=== PATIENT | female | born 1965 | race Hispanic/Latino ===

== ENCOUNTER 2019-01-04 18:48 | Emergency (ER) | payer OTHER, MEDICARE ==
[~2019-01-04 18:48] MED LIST: ASPI-555 PO; ATOR10TA69 PO; LEVE500T19 PO; LISI-617 PO; TRAZ-187 PO
[2019-01-04] MEDS ORDERED: KETOROLAC TROMETHAMINE 30MG/ML ONE (20:01)
[2019-01-04 20:16] LABS: BASOPHILS % (AUTO) 0.4 % (0.0-5.0); EOSINOPHILS % (AUTO) 2.4 % (0.0-8.0); LYMPHOCYTES % (AUTO) 41.2 % (21.0-51.0); MEAN CORPUSCULAR HEMOGLOBIN 31.3 pg (27.0-33.0); MEAN CORPUSCULAR HGB CONC 34.5 g/dL (32.0-36.0); MEAN CORPUSCULAR VOLUME 90.7 fL (79-99); MONOCYTES % (AUTO) 7.2 % (3.0-13.0); NEUTROPHILS % (AUTO) 48.8 % (40.0-77.0); PLATELET COUNT (AUTO) 201 K/uL (130-400); RED BLOOD CELL COUNT(AUTO) 3.97 MIL/uL (4.00-5.50); RED CELL DISTRIBUTION WIDTH 13.7 % (11.0-15.5); WHITE BLOOD COUNT (AUTO) 4.5 K/uL (4.8-10.8)
[2019-01-04 20:22] LABS: CREATININE 0.8 mg/dL (0.5-1.5); POTASSIUM 4.4 mmol/L (3.5-5.1)
[2019-01-04 20:29] LABS: ALBUMIN 3.5 g/dL (3.5-5.0); BILIRUBIN,TOTAL 0.3 mg/dL (0.2-1.0); TOTAL PROTEIN, SERUM 7.4 g/dL (6.0-8.3)
[2019-01-04] MEDS ORDERED: SODIUM CHLORIDE 0.9% 1000ML 1,000 ML IV ONE (22:05)
== END 2019-01-04 23:15 | disposition home or self-care (01) ==
LOC: EDH 18:48
DX: G44.209 Tension-type headache, unspecified, not intractable (principal); E86.0 Dehydration; F32.9 Major depressive disorder, single episode, unspecified
CPT/HCPCS: 36415; 70450; 80053; 85025; 96361; 96374; 99285; J1885; J7030

== ENCOUNTER → 2020-02-03 | Outpatient (CLI) | payer OTHER, MEDICARE ==
[~2020-02-03] MED LIST changes: -ASPI-555 PO; +ASPI-556 PO
--- NOTE | 2020-02-03 23:30 | NUR ---
PATIENT STATES CURRENT MEDICATIONS ARE RISPERIDONE .25MG, BUSPIRONE 15MG, DIVALPROEX EC 500MG, TRAZODONE 150 MG, ROSUVASTATIN ALLY 5MG, LOSARTAN 25MG. Addendum: 02/03/20 at 2355 by DAVID OSMAN RTSLT Amended: Links added.
== END | disposition home or self-care (01) ==
LOC: SLP 20:18
PROVIDERS: ATTEND Internal Medicine Critical Care Medicine
DX: G47.33 Obstructive sleep apnea (adult) (pediatric) (principal)
CPT/HCPCS: 95810

== ENCOUNTER 2020-02-24 20:34 | Emergency (ER) | payer OTHER, MEDICARE ==
[2020-02-24] MEDS ORDERED: KETOROLAC TROMETHAMINE 30MG/ML ONE (21:13)
[2020-02-24] MEDS ORDERED: HYDROCODONE/ACETAMINOPHEN 5/325 MG TAB ONE (21:13)
[2020-02-24 21:29] LABS: BASOPHILS % (AUTO) 0.2 % (0.0-5.0); HEMATOCRIT 37.1 % (36-48); LYMPHOCYTES % (AUTO) 37.1 % (21.0-51.0); MEAN CORPUSCULAR HEMOGLOBIN 29.8 pg (27.0-33.0); MEAN CORPUSCULAR HGB CONC 33.2 g/dL (32.0-36.0); MEAN CORPUSCULAR VOLUME 89.8 fL (79-99); NEUTROPHILS % (AUTO) 51.5 % (40.0-77.0); PLATELET COUNT (AUTO) 189 K/uL (130-400); RED BLOOD CELL COUNT(AUTO) 4.13 MIL/uL (4.00-5.50); RED CELL DISTRIBUTION WIDTH 12.6 % (11.0-15.5); WHITE BLOOD COUNT (AUTO) 4.6 K/uL (4.8-10.8)
[2020-02-24 21:34] LABS: APPEARANCE,URINE Clear (CLEAR); BILIRUBIN,URINE Negative (NEGATIVE); COLOR,URINE Yellow (YELLOW); GLUCOSE, URINE (UA) Negative (NEGATIVE); KETONES,URINE Negative (NEGATIVE); LEUKOCYTE ESTERASE ,URINE Large (NEGATIVE); NITRATE,URINE Negative (NEGATIVE); OCCULT BLOOD,URINE Negative (NEGATIVE); PROTEIN,URINE Negative (NEGATIVE)
[2020-02-24 21:38] LABS: CREATININE 0.8 mg/dL (0.5-1.5); POTASSIUM 4.5 mmol/L (3.5-5.1)
[2020-02-24 21:43] LABS: ALBUMIN 3.9 g/dL (3.5-5.0); BILIRUBIN,TOTAL 0.3 mg/dL (0.2-1.0); TOTAL PROTEIN, SERUM 7.9 g/dL (6.0-8.3)
[2020-02-24 21:44] LABS: RBC,URINE 0-1 /HPF (0-1)
[2020-02-24 21:45] LABS: BACTERIA,URINE Rare /HPF (None Seen); SQUAMOUS EPITHELIAL CELL,UR Rare /HPF (0-2)
[2020-02-24 21:48] LABS: B-TYPE NATRIURETIC PEPTIDE 27 pg/mL (0-100)
== END 2020-02-24 22:24 | disposition home or self-care (01) ==
LOC: EDH 20:34
DX: S29.012A Strain of muscle and tendon of back wall of thorax, initial encounter (principal); I10 Essential (primary) hypertension; F32.9 Major depressive disorder, single episode, unspecified; X58.XXXA Exposure to other specified factors, initial encounter; Y93.89 Activity, other specified; Y92.89 Other specified places as the place of occurrence of the external cause; Y99.8 Other external cause status
CPT/HCPCS: 36415; 71045; 80053; 81001; 82550; 83880; 84484; 85025; 87088; 93005; 96372; 99285; J1885

== ENCOUNTER → 2020-03-31 | Outpatient (CLI) | payer OTHER, MEDICARE | END | disposition home or self-care (01) | LOC: SLP 20:40 | PROVIDERS: ATTEND Internal Medicine Critical Care Medicine | DX: G47.33 Obstructive sleep apnea (adult) (pediatric) (principal) | CPT/HCPCS: 95811 ==

== ENCOUNTER 2023-01-14 03:51 | Emergency (ER) | payer OTHER, MEDICARE ==
[~2023-01-14] VITALS: Ht 157.5 cm; Wt 74.8 kg
[~2023-01-14 03:51] MED LIST changes: -LISI-617 PO; +LISI5TAB21 PO
[2023-01-14] MEDS ORDERED: CARB-336 PO (04:02)
[2023-01-14 04:16] LABS: BASOPHILS # (AUTO) 0.03 K/uL (0.00-0.20); BASOPHILS % (AUTO) 0.5 % (0.0-5.0); EOSINOPHILS # (AUTO) 0.25 K/uL (0.00-0.70); EOSINOPHILS % (AUTO) 3.8 % (0.0-8.0); HEMATOCRIT 31.7 % (36-48); IMMATURE GRANULOCYTE ABSOLUTE 0.02 K/uL (0-1); LYMPHOCYTES # (AUTO) 1.7 K/uL (1.0-4.8); LYMPHOCYTES % (AUTO) 25.6 % (21.0-51.0); MEAN CORPUSCULAR HEMOGLOBIN 29.9 pg (27.0-33.0); MEAN CORPUSCULAR HGB CONC 34.1 g/dL (32.0-36.0); MEAN CORPUSCULAR VOLUME 87.8 fL (79-99); MONOCYTES # (AUTO) 0.5 K/uL (0.1-1.0); NEUTROPHILS # (AUTO) 4.1 K/uL (1.8-7.7); NEUTROPHILS % (AUTO) 62.8 % (40.0-77.0); PLATELET COUNT (AUTO) 247 K/uL (130-400); RED BLOOD CELL COUNT(AUTO) 3.61 MIL/uL (4.00-5.50); RED CELL DISTRIBUTION WIDTH 12.5 % (11.0-15.5); WHITE BLOOD COUNT (AUTO) 6.6 K/uL (4.8-10.8)
[2023-01-14 04:25] LABS: CREATININE 0.9 mg/dL (0.5-1.5); POTASSIUM 4.1 mmol/L (3.5-5.1)
[2023-01-14] MEDS ORDERED: 0.9%NACL 1000ML 2,000 ML IV ONE (04:30)
[2023-01-14 04:32] LABS: B-TYPE NATRIURETIC PEPTIDE 55 pg/mL (0-100)
[2023-01-14 04:33] LABS: ALBUMIN 3.2 g/dL (3.5-5.0); BILIRUBIN,TOTAL 0.5 mg/dL (0.2-1.0); TOTAL PROTEIN, SERUM 6.5 g/dL (6.0-8.3)
[2023-01-14] MEDS ORDERED: NABU-141 PO (04:44)
[2023-01-14] MEDS ORDERED: GABA-529 PO (04:44)
[2023-01-14] MEDS ORDERED: ATOR10 PO (04:44)
[2023-01-14] MEDS ORDERED: VENL150T3 PO (04:44)
[2023-01-14] MEDS ORDERED: MELO-108 PO (04:44)
[2023-01-14] MEDS ORDERED: QUET400T PO (04:44)
[2023-01-14] MEDS ORDERED: NAPR-1023 PO (04:44)
[2023-01-14] MEDS ORDERED: LOSA25TA41 PO (04:44)
[2023-01-14] MEDS ORDERED: PROP10TA10 PO (04:44)
[2023-01-14 05:02] LABS: AMPHET/METH SCREEN,URINE NEGATIVE (NEGATIVE); BARBITURATE SCREEN, URINE NEGATIVE (NEGATIVE); BENZODIAZEPINES SCREEN,URINE NEGATIVE (NEGATIVE); CANNABINOID SCREEN,URINE NEGATIVE (NEGATIVE); COCAINE SCREEN,URINE NEGATIVE (NEGATIVE); OPIATE SCREEN,URINE NEGATIVE (NEGATIVE); PHENCYCLIDINE SCREEN,URINE NEGATIVE (NEGATIVE)
[2023-01-14 05:45] VITALS: BP 111/71; PULSE 63; RESP 16; O2SAT 98
== END 2023-01-14 06:47 | disposition home or self-care (01) ==
LOC: EDH 03:51
DX: G25.81 Restless legs syndrome (principal); I95.2 Hypotension due to drugs; F41.9 Anxiety disorder, unspecified; Z79.1 Long term (current) use of non-steroidal anti-inflammatories (NSAID); Z79.899 Other long term (current) drug therapy
CPT/HCPCS: 99284; 96360; 84484; 80053; 83880; 80305; 85025; 36415; 93005; J7030

== ENCOUNTER 2023-03-04 09:58 | Emergency (ER) | payer OTHER, MEDICARE ==
[~2023-03-04] VITALS: Ht 144.8 cm; Wt 86.2 kg
[~2023-03-04 09:58] MED LIST changes: +ATOR10 PO; +CARB-336 PO; +GABA-529 PO; +LOSA25TA41 PO; +MELO-108 PO; +NABU-141 PO; +NAPR-1023 PO; +PROP10TA10 PO; +QUET400T PO; +VENL150T3 PO
[2023-03-04 10:13] VITALS: BP 138/87; PULSE 73; RESP 15; O2SAT 96
[2023-03-04 10:24] LABS: BASOPHILS # (AUTO) 0.02 K/uL (0.00-0.20); BASOPHILS % (AUTO) 0.4 % (0.0-5.0); EOSINOPHILS # (AUTO) 0.12 K/uL (0.00-0.70); EOSINOPHILS % (AUTO) 2.5 % (0.0-8.0); HEMATOCRIT 37.4 % (36-48); IMMATURE GRANULOCYTE ABSOLUTE 0.02 K/uL (0-1); LYMPHOCYTES # (AUTO) 1.1 K/uL (1.0-4.8); LYMPHOCYTES % (AUTO) 23.2 % (21.0-51.0); MEAN CORPUSCULAR HEMOGLOBIN 30.1 pg (27.0-33.0); MEAN CORPUSCULAR VOLUME 88.6 fL (79-99); MONOCYTES # (AUTO) 0.3 K/uL (0.1-1.0); MONOCYTES % (AUTO) 5.2 % (3.0-13.0); NEUTROPHILS # (AUTO) 3.3 K/uL (1.8-7.7); NEUTROPHILS % (AUTO) 68.3 % (40.0-77.0); PLATELET COUNT (AUTO) 279 K/uL (130-400); RED BLOOD CELL COUNT(AUTO) 4.22 MIL/uL (4.00-5.50); RED CELL DISTRIBUTION WIDTH 12.6 % (11.0-15.5); WHITE BLOOD COUNT (AUTO) 4.8 K/uL (4.8-10.8)
[2023-03-04 10:37] LABS: CREATININE 0.6 mg/dL (0.5-1.5); POTASSIUM 4.1 mmol/L (3.5-5.1)
[2023-03-04 10:43] LABS: ALBUMIN 3.5 g/dL (3.5-5.0); BILIRUBIN,TOTAL 0.4 mg/dL (0.2-1.0); TOTAL PROTEIN, SERUM 7.5 g/dL (6.0-8.3)
[2023-03-04] MEDS ORDERED: DiphenhydrAMINE HCL 50 MG/ML VIAL IV ONE (12:00)
[2023-03-04] MEDS ORDERED: DEXAMETHASONE SOD PHOSPHATE 4 MG/ML 1ML VIAL IVP ONE (12:00)
[2023-03-04] MEDS ORDERED: 0.9%NACL 1000ML 1,000 ML IV SCH (12:00)
[2023-03-04] MEDS ORDERED: KETOROLAC 30MG VIAL (30MG/ML) IVP ONE (12:00)
== END 2023-03-04 14:46 | disposition home or self-care (01) ==
LOC: EDH 09:58
DX: R51.9 Headache, unspecified (principal); I10 Essential (primary) hypertension; F32.A Depression, unspecified; F41.9 Anxiety disorder, unspecified
CPT/HCPCS: 99285; 96374; 70450; 96375; 83735; 80053; 85025; 36415; J1100; J1200; J1885